=== PATIENT | female | born 1975 | race Caucasian/White ===

== ENCOUNTER 2016-11-17 20:40 | Emergency (ER) | payer BC ==
[2016-11-17 20:48] VITALS: BP 126/89; PULSE 76; TEMP 98.9; BMI 22.1
[2016-11-17 21:53] LABS: PH,URINE 5.5 (4.5-8); URINE APPEARANCE Clear; URINE BILIRUBIN Negative (NEGATIVE); URINE BLOOD Negative (NEGATIVE); URINE GLUCOSE (UA) Negative (NEGATIVE); URINE KETONE Negative (NEGATIVE); URINE LEUK ESTERASE Negative (NEGATIVE); URINE NITRITE Negative (NEGATIVE); URINE PROTEIN Negative (NEGATIVE); URINE UROBILINOGEN 0.2 (0.2-1.0)
[2016-11-17 21:57] LABS: URINE COLOR YELLOW
--- NOTE | 2016-11-17 22:46 | PDOC ---
History of Present Illness - General Chief Complaint: Pain, Acute Stated Complaint: OVARIAN CYSTS Time Seen by Provider: 11/17/16 22:24 - History of Present Illness Initial Comments: This 41-year-old woman with a history of seizures, PCOS, possible endometriosis presents with history of right pelvic pain 5 days ago, consistent with the pain that she feels with rupturing of an ovarian cyst. Over the next few days, patient also experienced pain in her lower back radiating to the right flank area. Although patient has had many episodes of ruptured ovarian cyst in the past, she has never had radiation to the right flank area. She denies shortness of breath, cough, anterior chest pain. She has had no dysuria/ hematuria/urinary frequency. Patient currently is not experiencing menstrual cycles Past History - Past Medical History Allergies/Adverse Reactions: Allergies Allergy/AdvReac Type Severity Reaction Status Date / Time No Known Allergies Allergy Unverified 11/17/16 20:42 Home Medications: Ambulatory Orders Ibuprofen [Advil -] 800 mg PO TID PRN 11/17/16 Levetiracetam [Keppra] 250 mg PO BID 11/17/16 Norethindrone 0.35 mg PO DAILY 11/17/16 Topiramate [Topamax] 100 mg PO DAILY 11/17/16 Disorders: Yes (PCOS, ENDOMETRIOSIS) Seizures: Yes - Psycho/Social/Smoking Cessation Hx Anxiety: No Suicidal Ideation: No Smoking History: Never smoked *Physical Exam - Vital Signs Last Vital Signs Temp Pulse Resp BP Pulse Ox 98.9 F 76 16 126/89 100 11/17/16 20:46 11/17/16 20:46 11/17/16 20:46 11/17/16 20:46 11/17/16 20:46 - Physical Exam Comments: GENERAL: Adult female, alert and oriented 3, in no acute distress HEAD: Normal with no signs of trauma. EYES: PERRLA, EOMI, sclera anicteric, conjunctiva clear. ENT: Ears normal, nares patent, oropharynx clear without exudates. Dry mucous membranes. NECK: Normal range of motion, supple without lymphadenopathy, JVD, or masses. LUNGS: Breath sounds equal, clear to auscultation bilaterally. No wheezes, and no crackles. HEART:Regular rate and rhythm, normal S1 and S2 without murmur, rub or gallop. ABDOMEN:.normal bowel sounds No guarding,tenderness or rebound.No masses No distention. EXTREMITIES: Normal range of motion, no edema. No clubbing or cyanosis. No erythema, or tenderness. NEUROLOGICAL: Cranial nerves II through XII grossly intact. Normal speech. No focal neurological deficits. MUSCULOSKELETAL: Back non-tender to palpation, no CVA tenderness SKIN: Warm, Dry, normal turgor, no rashes or lesions noted. ED Treatment Course - ADDITIONAL ORDERS Additional order review: Laboratory Results 11/17/16 21:30 Urine Color Yellow Urine Appearance Clear Urine pH 5.5 Ur Specific [place] 1.020 Urine Protein Negative Urine Glucose (UA) Negative Urine Ketones Negative Urine Blood Negative Urine Nitrite Negative Urine Bilirubin Negative Urine Urobilinogen 0.2 Ur Leukocyte Esterase Negative Urine HCG, Qual Negative Progress Note - Progress Note Progress Note: Urinalysis is normal without evidence of microscopic hematuria or UTI. PGU is negative Toradol 60 mg IM given for analgesia Pelvic ultrasound was performed to evaluate for ovarian torsion , free fluid consistent with large ovarian cyst rupture Although pelvic ultrasound was consistent with bilateral small ovarian cysts, there was no evidence of free fluid. Blood flow to both ovaries were normal without evidence of torsion. No evidence of ectopic or other abnormal masses Results discussed with the patient The patient reports modest decrease in her pain after Toradol IM. The patient has never had significant relief in her ovarian pain after opiates and wishes to avoid using this class of medications. Patient has had 2 previous episodes of zoster. Although the current pain in her left flank is not very similar to the pain that she had with her zoster rash , she realizes that this may nocturnist physician to be early zoster. She will watch closely for rash and return here or see her doctor if she develops any skin changes. Meanwhile, she will follow-up with her tile trimmer regarding further workup of her endometriosis. She will also see her neurologist since she has received medications for nerve- based pain that have been effective in the past In the meantime, she will continue ibuprofen as needed and return to the emergency room if symptoms worsen *DC/Admit/Observation/Transfer Diagnosis at time of Disposition: Ovarian cyst, bilateral, Left flank pain - Discharge Dispostion Disposition: HOME Condition at time of disposition: Stable - Referrals Referrals: Teresa Mesa MD [Primary Care Provider] - - Patient Instructions Printed Discharge Instructions: DI for Flank Pain Additional Instructions: Continue ibuprofen as needed Follow-up with your tile trimmer on Sunday as planned Follow-up with your general medical doctor/neurologist as discussed Return to ER if you have severe pain or develop rash
[2016-11-18] MEDS ORDERED: KETOROLAC TROMETHAMINE 60 MG/2 ML VIAL IM ONE (00:26)
[2016-11-18] MEDS ORDERED: KETOROLAC TROMETHAMINE 60 MG/2 ML VIAL ONE (00:28)
== END 2016-11-18 02:46 | disposition home or self-care (01) ==
LOC: FER 20:40
PROC: 3E0233Z Introduction of Anti-inflammatory into Muscle, Percutaneous Approach (ICD-10-PCS; principal; 2016-11-17)
DX: N83.202 Unspecified ovarian cyst, left side (principal); N83.201 Unspecified ovarian cyst, right side; R10.31 Right lower quadrant pain
CPT/HCPCS: 76856-TC; 81003; 84703; 99282-25